=== PATIENT | female | born 1990 | race African-American/Black ===

== ENCOUNTER 2017-12-26 06:12 | Emergency (ER) | payer OTHER ==
[~2017-12-26] VITALS: Ht 160 cm; Wt 102.5 kg
[~2017-12-26 06:12] MED LIST: DOXYCYCLINE HY100 M4 PO; NAPROSYN375 MG PO
[2017-12-26 07:51] LABS: ABSOLUTE BASOPHIL COUNT 0 /CUMM (0.0-0.2); ABSOLUTE EOSINOPHIL COUNT 0.1 /CUMM (0.0-0.7); ABSOLUTE GRANULOCYTE CT 2.3 /CUMM (1.4-6.5); ABSOLUTE LYMPH COUNT 1.6 /CUMM (1.2-3.4); ABSOLUTE MONOCYTE COUNT 0.5 /CUMM (0.10-0.60); BASOPHIL % 0.5 % (0.0-2.0); EOSINOPHIL % 2.1 % (0-5); GRANULOCYTE % 50.8 % (42.2-75.2); HEMATOCRIT 37.1 % (37-47); MEAN CORPUSCULAR HGB 29.9 PG (27.0-31.0); MEAN CORPUSCULAR HGB CONC 33.8 G/DL (33.0-37.0); MEAN CORPUSCULAR VOLUME 88.5 FL (81.0-99.0); PLATELET COUNT 284 /CUMM (130-400); RBC DISTRIBUTION WIDTH 12.8 % (11.5-14.5); RED BLOOD CELL CT 4.19 /CUMM (4.20-5.40); WHITE BLOOD CELL COUNT 4.4 /CUMM (4.8-10.8)
--- NOTE | 2017-12-26 09:33 | ULTRASOUND REPORT ---
EXAMINATION: US TRANSVAGINAL CLINICAL INFORMATION: . Vaginal bleeding. LMP of 11/19/2017. COMPARISON: 03/15/2013. TECHNIQUE: Sonographic imaging of the pelvis was performed using transabdominal and transvaginal transducers. FINDINGS: The cervix is normal. The cervical canal measures 3.3 cm in length. The uterus is anteflexed. Within the anterior uterine body, there is a 1.9 x 2.1 x 1.7 cm intramural leiomyoma. The endometrium measures 0.4 cm AP. No evidence of a gestational sac or fluid in the endometrial cavity. The right ovary is only visualized on the transabdominal images. The right ovary measures 2.2 x 1.6 x 1.9 cm. Color Doppler images with spectral waveforms show presence of arterial flow within the right ovary. The left ovary measures 3.4 x 3.1 x 3.2 cm. There is a 3.1 cm simple cyst of the ovary. Color Doppler images with spectral waveforms show presence of arterial flow within the left ovary. There are no adnexal masses. Small, physiologic amount of simple appearing free fluid is seen in the pelvic cul-de-sac. IMPRESSION: - No sonographic evidence of an intrauterine or ectopic . Recommend correlation with the quantitative beta hCG levels. - 3.1 cm simple cyst of the left ovary. - Small amount of free fluid is present in the pelvic cul-de-sac. - 1.9 x 2.1 x 1.7 cm intramural leiomyoma of the anterior uterine body.
--- NOTE | 2017-12-26 09:34 | ED GENERAL ADULT ---
History of Present Illness General Chief Complaint: Female Urogenital Problems Stated Complaint: PT 5 WKS PREG C/O VAG BLEEDING Source: patient Exam Limitations: no limitations Allergies Coded Allergies: No Known Allergies (12/26/17) Reconcile Medications Doxycycline Hyclate 100 MG TABLET 1 TAB PO BID infection Ibuprofen 800 MG TABLET 1 TAB PO TID PRN pain Naproxen (Naprosyn) 375 MG TABLET 1 TAB PO BID PRN PAIN Oxycodone HCl/Acetaminophen (Percocet 5-325 MG Tablet) 5 MG-325 MG TABLET 1 TAB PO Q4-6 PRN PRN pain Triage Note: PT TO ED FOR LOWER ABD PAIN WITH CRAMPING AND SPOTTING. DENIES PASSING CLOTS. DENIES NAUSEA. SAW [facility] SUNDAY AND HCG WAS "19". "I'M SUPPOSED TO GO BACK TOMORROW TO SEE IF THE LEVELS DOUBLED." Triage Nurses Notes Reviewed? yes Onset: Gradual Duration: hour(s): Timing: constant : Yes Patient currently breastfeeds: No HPI: 27-year-old otherwise healthy female on approximately 5 weeks gestation presenting with lower abdominal cramping and vaginal spotting since last night. Patient reports that she saw her [facility] 2 days ago and had an hCG level of 19, is supposed to go back tomorrow to see if the levels are rising. She has a history of one spontaneous , and currently has one living child. Denies fevers, nausea, vomiting, diarrhea, dysuria. (Roxy Willis) Vital Signs & Intake/Output Vital Signs & Intake/Output Vital Signs Date Time Temp Pulse Resp B/P B/P Pulse O2 O2 Flow FiO2 Mean Ox Delivery Rate 12/26 1008 97.0 56 20 126/66 97 Room Air 12/26 0712 96.6 71 15 120/65 98 Room Air Room Air (Vandana CONNELLY,[facility]) Past History Travel History Traveled to [place] past 21 day No Medical History Any Pertinent Medical History? none Neurological: NONE EENT: NONE Cardiovascular: NONE Respiratory: NONE Gastrointestinal: NONE Hepatic: NONE Renal: NONE Musculoskeletal: NONE Psychiatric: NONE Endocrine: NONE Blood Disorders: NONE Cancer(s): NONE MANAGER MONITORING/Reproductive: NONE Surgical History Surgical History: Psychosocial History What is your primary language Yoruba Tobacco Use: Never used ETOH Use: denies use Illicit Drug Use: denies illicit drug use Family History Hx Contributory? No (Roxy Willis) Review of Systems Review of Systems Constitutional: Reports: no symptoms. EENTM: Reports: no symptoms. Respiratory: Reports: no symptoms. Cardiovascular: Reports: no symptoms. GI: Reports: see HPI. Genitourinary: Reports: see HPI. Musculoskeletal: Reports: no symptoms. Skin: Reports: no symptoms. Neurological/Psychological: Reports: no symptoms. Hematologic/Endocrine: Reports: no symptoms. Immunologic/Allergic: Reports: no symptoms. All Other Systems: Reviewed and Negative (Roxy Willis) Physical Exam Physical Exam General Appearance: well developed/nourished, no apparent distress, alert, awake Comments: Gen.: Well-nourished, well-developed, no acute distress. Head: Normocephalic, atraumatic. Eyes: Normal inspection bilaterally Ears: Normal inspection bilaterally Nose: Normal inspection Neck: Normal inspection Lungs: clear to auscultation bilaterally, normnal breath sounds Heart: regular rate and rhythm Abdomen: soft and non-tender Pelvic: Mild amount of blood in the vaginal canal, no clots or tissue, exam is limited and difficult to assess if the cervical versus open, no cervical motion tenderness, no adnexal masses/tenderness Extremities: Normal inspection Neurologic: alert and oriented x3, steady gait Skin: warm and dry Psychiatric: Normal mood and affect, no apparent delusions or hallucinations, behavior appropriate Core Measures ACS in differential dx? No CVA/TIA Diagnosis: No Sepsis Present: No Sepsis Focused Exam Completed? No (Roxy Willis) Progress Differential Diagnoses I considered the following diagnoses in my evaluation of the patient: [ Spontaneous versus ectopic versus physiologic bleeding] Initial ED EKG: none (Roxy Willis) Plan of Care: Orders Procedure Date/time Status LIPASE 12/26 729 Complete HUMAN BETA HCG TITRE 12/26 729 Complete COMPREHENSIVE METABOLIC PANEL 12/26 729 Complete CBC WITHOUT DIFFERENTIAL 12/26 729 Complete TYPE & SCREEN (NOT X-MATCH) 12/26 729 Complete Current Medications Sig/David Start time Last Medication Dose Stop Time Status Admin Oxycodone HCl 5 MG ONCE ONE 12/26 944 CAN (Roxicodone) 12/26 0946 Laboratory Tests 12/26/17 0912: Urine Color Cancelled, Urine Clarity Cancelled, Urine pH Cancelled, Ur Specific [place] Cancelled, Urine Protein Cancelled, Urine Ketones Cancelled, Urine Nitrite Cancelled, Urine Bilirubin Cancelled, Urine Urobilinogen Cancelled, Ur Leukocyte Esterase Cancelled, Ur Microscopic Cancelled, Urine Hemoglobin Cancelled, Urine Glucose Cancelled 12/26/17 0743: Anion Gap 8, Estimated GFR > 60, BUN/Creatinine Ratio 11.7, Glucose 89, Calcium 8.9, Total Bilirubin 0.7, AST 25, ALT 28, Alkaline Phosphatase 56, Total Protein 6.6, Albumin 3.9, Globulin 2.7, Albumin/Globulin Ratio 1.4, Lipase 56, Beta HCG, Quant 10.8, CBC w Diff NO MAN DIFF REQ, RBC 4.19 L, MCV 88.5, MCH 29.9, MCHC 33.8, RDW 12.8, MPV 8.0, Gran % 50.8, Lymphocytes % 35.3, Monocytes % 11.3 H, Eosinophils % 2.1, Basophils % 0.5, Absolute Granulocytes 2.3, Absolute Lymphocytes 1.6, Absolute Monocytes 0.5, Absolute Eosinophils 0.1, Absolute Basophils 0 Microbiology 12/26 0912 URINE ROUT: Urine Culture - CAN Cancelled: Cancelled via OE: Per MD Decision Beta hCG today is 10, downtrending from her level 2 days ago. Consistent with a likely spontaneous . Labs are otherwise unremarkable. Patient unable to provide urine sample, but has no urinary symptoms, and this is less important as she is likely miscarrying and there is no need to check for asymptomatic bacteria. US IMPRESSION: - No sonographic evidence of an intrauterine or ectopic . Recommend correlation with the quantitative beta hCG levels. - 3.1 cm simple cyst of the left ovary. - Small amount of free fluid is present in the pelvic cul-de-sac. - 1.9 x 2.1 x 1.7 cm intramural leiomyoma of the anterior uterine body. Patient informed of all the above incidental findings. Instructed to use Tylenol and ibuprofen as needed for pain. Given Percocet in case she needs medication for breakthrough pain. She has an appointment with her [employer] [facility] tomorrow and will follow-up for evaluation then. Given strict return precautions. (Roberth GRIFFIN,Roxy) (Vandana CONNELLY,[facility]) Departure Departure Disposition: HOME OR SELF CARE Condition: Stable Clinical Impression Primary Impression: Spontaneous Referrals: Valeria Vaz APRN (PCP/Family) Additional Instructions: Use ibuprofen or Tylenol as needed for pain. You may use Percocet as needed for breakthrough pain. Do not combine Percocet with Tylenol as there is already Tylenol in this medication. Follow-up with your [employer] [facility] provider for reevaluation tomorrow as scheduled. Return to the emergency department for any new or worsening symptoms. Departure Forms: Customer Survey General Discharge Information Prescriptions: Current Visit Scripts Ibuprofen 1 TAB PO TID PRN pain #60 TAB Oxycodone HCl/Acetaminophen (Percocet 5-325 MG Tablet) 1 TAB PO Q4-6 PRN PRN pain #12 TAB (Roxy Willis) PA/[facility] Co-Sign Statement Statement: ED Attending supervision documentation- [X] I saw and evaluated the patient. I have also reviewed all the pertinent lab results and diagnostic results. I agree with the findings and the plan of care as documented in the PA's/BAG VALVER's documentation. [] I have reviewed the ED Record and agree with the PA's/BAG VALVER's documentation. [] Additions or exceptions (if any) to the PAs/BAG VALVER's note and plan are summarized below: [] 27-year-old female comes in for vginal bleeding. dropping Quant. No FF, no IUP. Ectopic versus threatened ab warnings given. Plan- OB follow up with warnings (Vandana CONNELLY,[facility]) Critical Care Note Critical Care Note Critical Care Time: non-applicable (Roxy Willis)
[2017-12-26 10:08] VITALS: BP 126/66
[2017-12-26] MEDS ORDERED: IBUPROFEN800 M1 PO (10:11)
[2017-12-26] MEDS ORDERED: PERCOCET 5-3251 EACH PO (10:11)
== END 2017-12-26 10:19 ==
LOC: ERH 06:12
PROVIDERS: Emergency Medicine
DX: O03.9 Complete or unspecified spontaneous abortion without complication (principal); R10.30 Lower abdominal pain, unspecified; N93.9 Abnormal uterine and vaginal bleeding, unspecified
CPT/HCPCS: 76817; 87086; 96372; J1885